=== PATIENT | male | born 1970 | race Caucasian/White ===

== ENCOUNTER 2022-03-29 22:00 | Emergency (ER) | payer OTHER ==
[2022-03-29 22:07] VITALS: TEMP 98.3; BMI 26.3
[2022-03-29 23:23] LABS: BASO % 0.2 % (0-2.0); EOS % 1.8 % (0-4.5); HEMATOCRIT 40.2 % (35.4-49); HEMOGLOBIN 13.9 GM/dL (11.7-16.9); LYMPH % 25.1 % (8-40); MCH 31.3 pg (25.7-33.7); MCHC 34.6 g/dl (32.0-35.9); MEAN CELL VOLUME 90.7 fl (80-96); MEAN PLT VOLUME 7.4 fl (7.5-11.1); MONO % 7.3 % (3.8-10.2); NEUT % 65.6 % (42.8-82.8); PLATELET COUNT 234 10^3/uL (134-434); RBC 4.43 M/mm3 (4.00-5.60); RDW 13.2 % (11.9-15.9)
[2022-03-29 23:31] LABS: INR 0.97 (0.83-1.09); PROTHROMBIN TIME (PATIENT) 11.2 SEC (9.7-13.0)
[2022-03-29 23:33] LABS: ACTIVATED PTT 32.2 SECONDS (25.2-36.5)
[2022-03-29 23:50] LABS: BLOOD UREA NITROGEN 13.8 mg/dL (7-18)
[2022-03-29 23:55] LABS: BILIRUBIN,TOTAL 0.2 mg/dL (0.2-1); TOT PROT 6.9 g/dl (6.4-8.2)
[2022-03-30 02:34] VITALS: BP 139/83; PULSE 68; RESP 16
== END 2022-03-30 03:02 | disposition home or self-care (01) ==
LOC: JER 22:00
DX: R07.9 Chest pain, unspecified (principal)
CPT/HCPCS: 36415; 71045-TC-FY; 80053; 83605; 84484; 85025; 85610; 85730; 93005; 93010; 99285-25; C9803-CS; U0003; U0005